=== PATIENT | female | born 1980 | race Caucasian/White ===

== ENCOUNTER 2017-10-30 16:14 | Inpatient (IN) ==
[2017-10-30 16:54] LABS: Apearance,Urine CLOUDY (Clear); Bilirubin,Urine Negative (Negative); Blood, Urine Negative (Negative); Glucose,Urine (UA) Negative (Negative); Ketones,Urine Negative (Negative); Mucus,Urine Occasional /LPF (Occasional); Nitrite,Urine Negative (Negative); Protein,Urine 30 MG/DL; RBC,Urine <1 /HPF (0-4); Squamous Epithelial Cell,Urine Few /HPF (0-10); Urine Color Yellow (Yellow); Urine Specific Gravity 1.011 (1.001-1.035); Urine Urobilinogen < 2.0 EU/DL (0.2-1.0); WBC,Urine 2 /HPF (0-6)
[2017-10-30 17:07] LABS: Basophils % 0.3 % (0.0-0.8); Eosinophils # 0.3 10*3/uL (0.0-0.87); Eosinophils % 2.9 % (0.00-10.9); Hematocrit 33.9 VOL% (35.7-47.0); Hemoglobin 11.4 GM/DL (12.0-16.0); Immature Granulocytes % 0.4 %; Immature Granulocytes Absolute 0.04 #; Lymphocytes # 2.8 10*3/uL (1.4-4.0); Lymphocytes % 24.8 % (21.3-54.2); Mean Corpuscular HGB Conc 33.6 GM/DL (32-36); Mean Corpuscular Hemoglobin 33 PG (27-34); Mean Corpuscular Volume 97.4 FL (87-102); Mean Platelet Volume 9.9 FL (9.6-12.0); Monocytes # 0.8 10*3/uL (0.11-0.8); Monocytes % 7.1 % (1.7-12.7); Neutrophils # 7.3 10*3/uL (1.4-7.4); Neutrophils % 64.5 % (38.7-73.9); Platelet Count 207 T/CUMM (130-400); Red Blood Count 3.48 MC/CUMM (3.8-5.5); Red Cell Distribution Width 13.1 % (9.3-17.3); White Blood Count 11.3 T/CUMM (4-12)
[2017-10-30 17:27] LABS: Alanine Aminotransferase 21 U/L (13-56); Alkaline Phosphatase 94 U/L (45-117); Aspartate Amino Transferase 19 U/L (0-37); Bilirubin,Total < 0.39 MG/DL (0.2-1.0); Blood Urea Nitrogen 6 MG/DL (7-18); Calcium 8.3 MG/DL (8.5-10.1); Glucose 93 MG/DL (74-106); Osmolality,Calculated 274.5 MOS/KG (273-304); Potassium 4.5 MMOL/L (3.5-5.1); Sodium 139 MMOL/L (136-145); Total Protein 5.9 G/DL (6.4-8.3); Uric Acid 3.5 MG/DL (2.6-6.0)
[2017-10-30] MEDS ORDERED: CITRIC ACID/SODIUM CITRATE 30 ML UDCUP PO ONE (17:44)
[2017-10-30] MEDS ORDERED: ceFAZolin 3,000 MG in SYRINGE 1 EACH IV ONE (17:44)
[2017-10-30] MEDS ORDERED: FAMOTIDINE 20 MG/2 ML VIAL IV ONE (17:44)
[2017-10-30] MEDS ORDERED: OXYTOCIN/LR 20 UNIT/1,000 ML BAG IV ONE ×2 (17:48→19:53)
[2017-10-30] MEDS ORDERED: BUPIVACAINE SPINAL 0.75% 2 ML AMP SPINAL ONE (17:50)
[2017-10-30 18:00] LABS: INR 0.9; PT Patient Result 9.5 SECS; Partial Thromboplastin Time 27.9 SECS (0-40)
[2017-10-30] MEDS: LACTATED RINGERS 1,000 ML IV SCH ×2 (18:34→18:35)
[2017-10-30] MEDS ORDERED: LABETALOL 200 MG/40 ML VIAL IV PRN ×2 (18:57)
[2017-10-30] MEDS ORDERED: miSOPROStol 200 MCG TABLET ONE (19:21)
[2017-10-30] MEDS ORDERED: CARBOPROST TROMETHAMINE 250 MCG/ML AMP IM ONE (19:21)
[2017-10-30] MEDS ORDERED: oxyCODONE/ACETAMINOPHEN 5-325 MG TABLET PO PRN ×2 (19:53)
[2017-10-30] MEDS ORDERED: HYDROCORTISONE 2.5% RECTAL CREAM 30 GM TUBE TOP PRN (19:53)
[2017-10-30] MEDS ORDERED: ONDANSETRON 4 MG/2 ML VIAL IV PRN (19:53)
[2017-10-30] MEDS ORDERED: ACETAMINOPHEN 325 MG TABLET PO PRN (19:53)
[2017-10-30] MEDS ORDERED: LANOLIN 50% CREAM 0.3 OZ TUBE TOP PRN (19:53)
[2017-10-30] MEDS ORDERED: DIPH/TET/ACEL PERT BOOSTER VACCINE 0.5 ML VIAL IM ONE (19:53)
[2017-10-30] MEDS ORDERED: BENZOCAINE 20%/MENTHOL 0.5% SPRAY 56 GM CAN TOP PRN (19:53)
[2017-10-30] MEDS ORDERED: BISACODYL 10 MG SUPP RECTAL PRN (19:53)
[2017-10-30] MEDS ORDERED: MEASLES/MUMPS/RUBELLA VACCINE 0.5 ML VIAL SUBCUT ONE (19:53)
[2017-10-30] MEDS ORDERED: WITCH HAZEL PADS 100/JAR TOP PRN (19:53)
[2017-10-30] MEDS ORDERED: RHO(D) IMMUNE GLOBULIN 300 MCG SYRINGE IM ONE (19:53)
[2017-10-30] MEDS ORDERED: LABETALOL 20 MG/4 ML SYRINGE IV PRN (20:00)
[2017-10-30] MEDS ORDERED: MAGNESIUM SULF RIDER 4 GM in PREMIX 1 EACH IV ONE (20:00)
[2017-10-30] MEDS ORDERED: hydrALAZINE 20 MG/1 ML VIAL IV PRN (20:00)
[2017-10-30] MEDS ORDERED: MAGNESIUM SULF DRIP 40 GM/1,000 ML ML IV SCH (20:00)
[2017-10-30] MEDS ORDERED: MORPHINE 10 MG/10 ML VIAL ONE (20:08)
[2017-10-30] MEDS ORDERED: PHENYLEPHRINE 1 MG/10 ML SYRINGE IV ONE (20:08)
[2017-10-30] MEDS: DOCUSATE SODIUM 100 MG CAPSULE PO SCH (23:41)
[2017-10-31 04:37] LABS: Basophils # 0.1 10*3/uL (0.0-0.2); Basophils % 0.3 % (0.0-0.8); Eosinophils # 0.3 10*3/uL (0.0-0.87); Eosinophils % 1.9 % (0.00-10.9); Hematocrit 31.8 VOL% (35.7-47.0); Hemoglobin 10.9 GM/DL (12.0-16.0); Immature Granulocytes % 0.4 %; Immature Granulocytes Absolute 0.06 #; Lymphocytes # 2.7 10*3/uL (1.4-4.0); Lymphocytes % 16.7 % (21.3-54.2); Mean Corpuscular HGB Conc 34.3 GM/DL (32-36); Mean Corpuscular Hemoglobin 33 PG (27-34); Mean Corpuscular Volume 95.5 FL (87-102); Mean Platelet Volume 10.1 FL (9.6-12.0); Neutrophils % 74.7 % (38.7-73.9); Platelet Count 203 T/CUMM (130-400); Red Blood Count 3.33 MC/CUMM (3.8-5.5); Red Cell Distribution Width 13.2 % (9.3-17.3); White Blood Count 16.1 T/CUMM (4-12)
[2017-10-31] MEDS: LABETALOL 200 MG TABLET PO SCH ×2 (08:10→16:50)
[2017-10-31] MEDS: diphenhydrAMINE CAP 25 MG CAPSULE PO PRN ×2 (12:56→20:07)
[2017-10-31] MEDS: DOCUSATE SODIUM 100 MG CAPSULE PO SCH ×2 (14:14→20:07)
[2017-11-01] MEDS: LABETALOL 200 MG TABLET PO SCH ×4 (00:04→23:44)
[2017-11-01] MEDS: IBUPROFEN 800 MG TABLET PO PRN ×3 (03:25→19:55)
[2017-11-01] MEDS: DOCUSATE SODIUM 100 MG CAPSULE PO SCH ×2 (08:40→20:00)
[2017-11-01] MEDS: FUROSEMIDE 20 MG TABLET PO SCH (11:24)
[2017-11-01] MEDS: POTASSIUM CHLORIDE 10 MEQ TABLET PO SCH (11:24)
[2017-11-01] MEDS: MAGNESIUM HYDROXIDE SUSP 30 ML UDCUP PO PRN ×2 (13:14→22:26)
[2017-11-02 07:49] VITALS: BP 152/93
[2017-11-02] MEDS: LABETALOL 200 MG TABLET PO SCH (07:55)
[2017-11-02] MEDS: DOCUSATE SODIUM 100 MG CAPSULE PO SCH (08:40)
[2017-11-02] MEDS: POTASSIUM CHLORIDE 10 MEQ TABLET PO SCH (08:40)
[2017-11-02] MEDS: MAGNESIUM HYDROXIDE SUSP 30 ML UDCUP PO PRN (08:40)
[2017-11-02] MEDS: FUROSEMIDE 20 MG TABLET PO SCH (08:41)
[2017-11-02] MEDS: IBUPROFEN 800 MG TABLET PO PRN (08:41)
== END 2017-11-02 11:45 | disposition home or self-care (01) | DRG 765 ==
LOC: N.LDOUT 16:14 → N.LD 16:19 → N.OB 11-01 11:56
PROVIDERS: ADMIT Specialist; ATTEND Specialist
PROC: LDCSECT (ICD-10-PCS; 2017-10-30 19:00)